=== PATIENT | male | born 2000 | race Two or more races ===

== ENCOUNTER 2021-11-25 06:31 | Emergency (ER) | payer OTHER ==
[~2021-11-25] VITALS: Ht 167.6 cm; Wt 72.0 kg
--- NOTE | 2021-11-25 07:16 | PHYS DOC ---
General Adult EDM: Chief Complaint: PENIS PROBLEM HPI: HPI: Patient is a 21 year old male who presents with inability to reduce his foreskin over his penis. Symptoms began just before 4:00 this morning. He denies any trauma or injury. He has used a lot of hot water and he has been trying to retract his foreskin proximally instead of distally, and he has irritation and pain at his glans penis. He has been able to urinate without any pain or difficulty. No gross hematuria reported. No pelvic pain. No scrotal pain. No fevers or chills. No nausea or vomiting. Is not recently engaged in any sort of intercourse. No previous history of similar symptoms. Review of Systems: Review of Systems: Constitutional: Denies fever or chills. [] Respiratory: Denies cough or shortness of breath. [] Cardiovascular: Denies chest pain or edema. [] GI: Denies abdominal pain, nausea, vomiting : Denies dysuria or gross hematuria. Penile discomfort and swelling and paraphimosis. No scrotal pain or swelling. No pelvic pain. Musculoskeletal: Denies back pain or joint pain. [] Integument: Denies rash. [] Psychiatric: Anxiety as it pertains to current clinical situation. Heart Score: C/O Chest Pain: No Risk Factors: Risk Factors: DM, Current or recent (<one month) smoker, HTN, HLP, family history of CAD, obesity. Risk Scores: Score 0 - 3: 2.5% MACE over next 6 weeks - Discharge Home Score 4 - 6: 20.3% MACE over next 6 weeks - Admit for Clinical Observation Score 7 - 10: 72.7% MACE over next 6 weeks - Early Invasive Strategies Physical Exam: PE: Constitutional: Well developed, well nourished, no acute distress, non-toxic appearance. Anxious and appears uncomfortable HENT: Normocephalic, atraumatic Cardiovascular: Well-perfused appearing, no edema Lungs & Thorax: Respirations are nonlabored. Abdomen: Diminished soft, nondistended, nontender to palpation, no palpable masses organomegaly : Paraphimosis is noted. Glans penis is moderately swollen, erythematous, tender to palpation. No cyanosis or dusky discoloration. Penile urethral meatus is patent without any discharge, no urethral bleeding. No scrotal swelling or tenderness. No ulcers or abnormal lesions are noted. Skin: Warm, dry, no rash. Glans penis is mildly to moderately erythematous and swollen. Extremities: No limb deformity, no edema. Neurologic: Alert and oriented X 3, normal motor function, normal sensory function, no focal deficits noted. [] Psychologic: He is anxious but very pleasant and cooperative. EKG: EKG: [] Radiology/Procedures: Radiology/Procedures: [] Course & Med Decision Making: Course & Med Decision Making Pertinent Labs and Imaging studies reviewed. (See chart for details) Using gentle manual traction and lidocaine jelly I was able to manually reduce the paraphimosis. The patient feels much better. He was able to urinate without any difficulty at all. He feels much better. I discussed the findings, differential diagnosis and plan of care with him. I discussed how to handle this in the future should this occur again. I recommend sexual abstinence for now, continue routine hygienic measures. Return precautions are given. He lives in [place], he will be returning home there today. He should follow-up with his primary care physician there. Return precautions are given. Juanito Disclaimer: Juanito Disclaimer: This electronic medical record was generated, in whole or in part, using a voice recognition dictation system. Departure Departure Impression: Primary Impression: Paraphimosis Disposition: 01 HOME / SELF CARE / HOMELESS Condition: GOOD Referrals: UNKNOWN PCP NAME (PCP) Patient Instructions: Paraphimosis Additional Instructions: You may continue your regular routine activities as per usual. Continue your regular hygienic and routine as per usual. I would recommend avoiding any sexual activity for the next few days. Please seek emergency medical care if this recurs again and you are unable to manually reduce your foreskin, if you develop any severe pain, inability urinate, pelvic pain, abdominal pain, vomiting, fever, if you develop any drainage or discharge from your urethra or for any other concerns. If this occurs again, make sure to apply gentle downward pressure to reduce your foreskin over the tip of your penis. You may use the lidocaine jelly or [id number]-Y jelly to assist in this in the future. Follow-up with your doctor in [place]. CIARA TRIANA DO Nov 25, 2021 07:16
[2021-11-25 07:26] VITALS: BP 164/70
[2021-11-25] MEDS ORDERED: LIDOCAINE 2% JELLY 6ML IN APPLICATOR. MM ONE (07:30)
[2021-11-25 07:58] LABS: BILIRUBIN,URINE NEGATIVE (NEG); CLARITY,URINE CLEAR; COLOR,URINE YELLOW; NITRITE,URINE NEGATIVE (NEG); PH,URINE 6.5 (<5.0-8.0); PROTEIN,URINE NEGATIVE (NEG-TRACE); UROBILINOGEN,URINE 0.2 mg/dL (0.2 mg/dL)
[2021-11-25 08:15] LABS: BACTERIA,URINE 0 /HPF (0-FEW); RBC,URINE OCC /HPF (0-2); WBC,URINE 0 /HPF (0-4)
== END 2021-11-25 08:19 | disposition home or self-care (01) ==
LOC: ER 06:31
DX: N47.2 Paraphimosis (principal)
CPT/HCPCS: 81001; 99283